=== PATIENT | female | born 1955 | race Caucasian/White ===

== ENCOUNTER 2022-06-16 20:17 | Inpatient (IN) | payer MEDICAID, OTHER ==
[~2022-06-16] VITALS: Ht 154.9 cm; Wt 63.7 kg
[~2022-06-16 20:17] MED LIST: CEPH500C2 MT; GLIP5TAB12 MT; LOSA50TA41 PO
[2022-06-16] MEDS ORDERED: MORPHINE SULFATE 4 MG/ML CPJ (NOT FOR IM USE) IV STA (21:19)
[2022-06-16 21:59] LABS: BASOPHILS % 0.4 % (0.0-2.0); CHLORIDE 97 mEq/L (98-107); HEMATOCRIT. 25.1 % (36.0-48.0); HEMOGLOBIN. 8.5 g/dL (12.0-16.0); LYMPHOCYTES % 10.7 % (20.0-50.0); MEAN CORPUSCULAR HEMOGLOBIN 26.6 pg (28.0-32.0); MEAN PLATELET VOLUME 8.3 fl (7.4-10.4); MONOCYTES % 8.1 % (2.0-8.0); NEUTROPHILS % 80.8 % (40.0-76.0); PLATELET 242 x1000/uL (130-400); RED BLOOD CELL COUNT 3.18 mill/uL (4.2-5.4); RED CELL DISTRIBUTION WIDTH 14.6 % (11.6-14.6)
[2022-06-16] MEDS ORDERED: ASPIRIN 81MG TABLET PO ONE (22:45)
[2022-06-16] MEDS ORDERED: CEFTRIAXONE 1 G PREMIX 50 ML IV ONE (23:45)
[2022-06-17] MEDS ORDERED: MORPHINE SULFATE 4 MG/ML CPJ (NOT FOR IM USE) IV NR (00:07)
[2022-06-17] MEDS ORDERED: ASPIRIN 81MG TABLET PO NR (00:08)
[2022-06-17 06:39] LABS: CLARITY URINE CLOUDY (CLEAR); COLOR URINE YELLOW (YELLOW); KETONES URINE NEGATIVE (NEGATIVE); LEUKOCYTE ESTERASE URINE 3+ (NEGATIVE); NITRITE URINE POSITIVE (NEGATIVE); OCCULT BLOOD URINE 2+ (NEGATIVE); PH URINE 6.5 (4.5-8.0); PROTEIN URINE 2+ (NEGATIVE)
[2022-06-17 16:00] VITALS: BP_SYST 134; BP_SYST 138; BP_DIAS 74
[2022-06-17] MEDS ORDERED: GLIP5TAB12 MT (16:36)
[2022-06-17] MEDS ORDERED: DEXTROSE 50% WATER 50ML SYRINGE IV PRN ×2 (17:30)
[2022-06-17] MEDS ORDERED: ACETAMINOPHEN 325MG TABLET PO PRN (17:30)
[2022-06-17] MEDS ORDERED: ONDANSETRON HCL 4MG/2ML INJ IV PRN (17:30)
[2022-06-17] MEDS ORDERED: MAGNESIUM/ALUMINUM HYDROXIDE/SIMETHICONE 30ML UDC PO PRN (17:30)
[2022-06-17] MEDS ORDERED: HYDROCODONE/ACETAMINOPHEN 5/325MG TABLET PO PRN (17:33)
[2022-06-17] MEDS ORDERED: ENOXAPARIN 30MG/0.3ML SYR SUBCUT SCH (18:00)
[2022-06-17] MEDS: BLOOD SUGAR DIAGNOSTIC STRIP TEST SCH ×2 (18:31→21:08)
[2022-06-17] MEDS: SODIUM CHLORIDE 0.9% 1,000 ML IV SCH (18:46)
[2022-06-17] MEDS: INSULIN LISPRO 100 UNITS/ML SUBCUT SCH ×2 (18:47→21:15)
[2022-06-17 20:00] VITALS: BP 114/63
[2022-06-17 21:14] LABS: TOTAL IRON BINDING CAPACITY 385 ug/dL (250-450)
[2022-06-18 01:00] VITALS: BP 143/65
[2022-06-18 04:00] VITALS: BP 139/64
[2022-06-18] MEDS: BLOOD SUGAR DIAGNOSTIC STRIP TEST SCH ×4 (06:25→21:24)
[2022-06-18 06:44] LABS: BASOPHILS % 0.4 % (0.0-2.0); HEMATOCRIT. 22.6 % (36.0-48.0); HEMOGLOBIN. 7.6 g/dL (12.0-16.0); LYMPHOCYTES % 12.8 % (20.0-50.0); MEAN CORPUSCULAR HEMOGLOBIN 26.7 pg (28.0-32.0); MEAN CORPUSCULAR VOLUME 79.4 fL (81.0-99.0); MEAN PLATELET VOLUME 8.5 fl (7.4-10.4); MONOCYTES % 9.8 % (2.0-8.0); PLATELET 216 x1000/uL (130-400); RED BLOOD CELL COUNT 2.85 mill/uL (4.2-5.4); RED CELL DISTRIBUTION WIDTH 14.8 % (11.6-14.6)
[2022-06-18 08:00] VITALS: BP 149/59
[2022-06-18 08:22] LABS: PHOSPHORUS 4.7 mg/dL (2.5-4.9); T4 FREE 1.39 ng/dL (0.76-1.46)
[2022-06-18] MEDS: INSULIN LISPRO 100 UNITS/ML SUBCUT SCH ×4 (08:32→21:33)
[2022-06-18 12:00] VITALS: BP 144/67
[2022-06-18] MEDS: SODIUM CHLORIDE 0.9% 1,000 ML IV SCH ×2 (13:55→21:24)
[2022-06-18 16:00] VITALS: BP 149/56
[2022-06-18] MEDS: FERROUS SULFATE 325MG TABLET PO SCH (18:04)
[2022-06-18] MEDS: PANTOPRAZOLE SODIUM 40 MG/VIAL IV SCH (18:04)
[2022-06-18] MEDS: CEFTRIAXONE 1,000 MG in DEXTROSE 5% WATER 50 ML IV SCH ×2 (18:05→18:37)
[2022-06-18 20:00] VITALS: BP 165/67
[2022-06-18] MEDS ORDERED: NALOXONE HCL 0.4MG/ML VIAL IV PRN (20:00)
[2022-06-18] MEDS ORDERED: EPOETIN ALFA 10000UNITS/ML VIAL SUBCUT SCH (21:00)
[2022-06-18] MEDS: CLONIDINE 0.1MG TABLET PO PRN (21:26)
[2022-06-18] MEDS: INSULIN GLARGINE 100 UNITS/ML SUBCUT SCH (21:33)
[2022-06-18 22:48] LABS: HEMATOCRIT 22.5 % (36.0-48.0); HEMOGLOBIN 7.4 g/dL (12.0-16.0)
[2022-06-19] VITALS (10 sets, daily range): BP systolic 132–175; BP diastolic 59–76
[2022-06-19] MEDS: SODIUM CHLORIDE 0.9% 1,000 ML IV SCH (06:15)
[2022-06-19] MEDS: BLOOD SUGAR DIAGNOSTIC STRIP TEST SCH ×4 (06:22→20:56)
[2022-06-19] MEDS: PANTOPRAZOLE SODIUM 40 MG/VIAL IV SCH ×2 (06:26→18:13)
[2022-06-19 07:53] LABS: CHLORIDE 103 mEq/L (98-107)
[2022-06-19 07:55] LABS: BASOPHILS % 0.4 % (0.0-2.0); EOSINOPHILS % 1.6 % (0.0-5.0); HEMOGLOBIN. 7.1 g/dL (12.0-16.0); LYMPHOCYTES % 13.5 % (20.0-50.0); MEAN CORPUSCULAR HEMOGLOBIN 27.1 pg (28.0-32.0); MEAN PLATELET VOLUME 8.4 fl (7.4-10.4); NEUTROPHILS % 76.5 % (40.0-76.0); PLATELET 265 x1000/uL (130-400); RED CELL DISTRIBUTION WIDTH 14.6 % (11.6-14.6)
[2022-06-19 08:09] LABS: PHOSPHORUS 3.8 mg/dL (2.5-4.9)
[2022-06-19 08:23] LABS: HEMATOCRIT. 20.8 % (36.0-48.0)
[2022-06-19 08:29] LABS: VITAMIN B12 SERUM >2000 pg/mL pg/mL (211-911)
[2022-06-19] MEDS: FERROUS SULFATE 325MG TABLET PO SCH ×3 (08:47→18:13)
[2022-06-19] MEDS: INSULIN LISPRO 100 UNITS/ML SUBCUT SCH ×4 (08:49→20:56)
[2022-06-19] MEDS: AMLODIPINE 2.5MG TABLET PO SCH ×2 (11:10→20:54)
[2022-06-19 11:30] LABS: CORTISOL 21.2 ucg/dL; FERRITIN 662 ng/mL (10-291)
[2022-06-19 11:47] LABS: HEMATOCRIT 21.3 % (36.0-48.0); HEMOGLOBIN 7.1 g/dL (12.0-16.0)
[2022-06-19] MEDS: CEFTRIAXONE 1,000 MG in DEXTROSE 5% WATER 50 ML IV SCH (18:33)
[2022-06-19] MEDS: CLONIDINE 0.1MG TABLET PO PRN (19:51)
[2022-06-19] MEDS: INSULIN GLARGINE 100 UNITS/ML SUBCUT SCH (21:00)
[2022-06-19 21:47] LABS: HEMATOCRIT 25.3 % (36.0-48.0); HEMOGLOBIN 8.2 g/dL (12.0-16.0)
[2022-06-19 22:23] LABS: PROTHROMBIN TIME 10.8 sec (9.6-11.0)
[2022-06-20] VITALS: BP 136/58
[2022-06-20 04:00] VITALS: BP 157/55
[2022-06-20] MEDS: SODIUM CHLORIDE 0.9% 1,000 ML IV SCH ×4 (04:33→23:31)
[2022-06-20 04:40] LABS: BASOPHILS % 0.5 % (0.0-2.0); EOSINOPHILS % 1.7 % (0.0-5.0); HEMATOCRIT. 24.5 % (36.0-48.0); HEMOGLOBIN. 8.1 g/dL (12.0-16.0); LYMPHOCYTES % 13.1 % (20.0-50.0); MEAN CORPUSCULAR HEMOGLOBIN 25.4 pg (28.0-32.0); MEAN CORPUSCULAR VOLUME 76.8 fL (81.0-99.0); MEAN PLATELET VOLUME 8.1 fl (7.4-10.4); MONOCYTES % 7.9 % (2.0-8.0); NEUTROPHILS % 76.8 % (40.0-76.0); PLATELET 277 x1000/uL (130-400); RED CELL DISTRIBUTION WIDTH 16.5 % (11.6-14.6)
[2022-06-20 05:25] LABS: PROTHROMBIN TIME 10.8 sec (9.6-11.0)
[2022-06-20] MEDS: BLOOD SUGAR DIAGNOSTIC STRIP TEST SCH ×4 (05:57→20:55)
[2022-06-20] MEDS: PANTOPRAZOLE SODIUM 40 MG/VIAL IV SCH ×2 (05:57→17:27)
[2022-06-20 06:45] LABS: PHOSPHORUS 3.4 mg/dL (2.5-4.9)
[2022-06-20] MEDS: FERROUS SULFATE 325MG TABLET PO SCH ×3 (07:50→17:26)
[2022-06-20] MEDS: INSULIN LISPRO 100 UNITS/ML SUBCUT SCH ×4 (07:50→21:02)
[2022-06-20 08:00] VITALS: BP 151/64
[2022-06-20] MEDS: AMLODIPINE 2.5MG TABLET PO SCH (08:28)
[2022-06-20 09:09] LABS: FOLATE HEMATOCRIT 21.4 % (34.0-46.6)
[2022-06-20 11:17] VITALS: BP 130/60
[2022-06-20] MEDS ORDERED: LIDOCAINE HCL 1% 10 MG/ML 10ML VIAL ONE (14:03)
[2022-06-20 14:08] LABS: FOLATE RBC 1266 ng/mL (>498)
[2022-06-20] MEDS ORDERED: MEPERIDINE HCL/PF 25MG/ML CPJ IV PRN (14:15)
[2022-06-20] MEDS ORDERED: HYDROMORPHONE HCL/PF 2MG/ML CPJ IV PRN (14:15)
[2022-06-20] MEDS ORDERED: ONDANSETRON HCL 4MG/2ML INJ IV PRN (14:15)
[2022-06-20] MEDS ORDERED: LABETALOL 5MG/ML SYR 20 MG/4 ML SYRINGE IV PRN (14:15)
[2022-06-20] MEDS: CLONIDINE 0.1MG TABLET PO PRN (14:47)
[2022-06-20 15:50] VITALS: BP 151/51
[2022-06-20] MEDS: CEFTRIAXONE 1,000 MG in DEXTROSE 5% WATER 50 ML IV SCH (17:27)
[2022-06-20 20:00] VITALS: BP 137/35
[2022-06-20] MEDS: AMLODIPINE 5MG TABLET PO SCH (21:00)
[2022-06-20] MEDS: INSULIN GLARGINE 100 UNITS/ML SUBCUT SCH (21:03)
[2022-06-21] VITALS: BP 156/44
[2022-06-21 04:00] VITALS: BP 148/47
[2022-06-21] MEDS: BLOOD SUGAR DIAGNOSTIC STRIP TEST SCH ×2 (05:15→12:11)
[2022-06-21] MEDS: PANTOPRAZOLE SODIUM 40 MG/VIAL IV SCH (05:15)
[2022-06-21 05:50] LABS: BASOPHILS % 0.6 % (0.0-2.0); HEMOGLOBIN. 8.3 g/dL (12.0-16.0); LYMPHOCYTES % 14.6 % (20.0-50.0); MEAN CORPUSCULAR HEMOGLOBIN 25.8 pg (28.0-32.0); MEAN CORPUSCULAR VOLUME 77.4 fL (81.0-99.0); MEAN PLATELET VOLUME 7.7 fl (7.4-10.4); MONOCYTES % 6.8 % (2.0-8.0); PLATELET 331 x1000/uL (130-400); RED BLOOD CELL COUNT 3.23 mill/uL (4.2-5.4); RED CELL DISTRIBUTION WIDTH 16.6 % (11.6-14.6)
[2022-06-21 06:08] LABS: CHLORIDE 109 mEq/L (98-107)
[2022-06-21 06:20] LABS: PHOSPHORUS 3.8 mg/dL (2.5-4.9)
[2022-06-21] MEDS: INSULIN LISPRO 100 UNITS/ML SUBCUT SCH ×2 (07:50→12:52)
[2022-06-21 08:00] VITALS: BP 127/67
[2022-06-21] MEDS: FERROUS SULFATE 325MG TABLET PO SCH ×2 (08:35→12:29)
[2022-06-21] MEDS: AMLODIPINE 5MG TABLET PO SCH (08:35)
[2022-06-21] MEDS: SODIUM CHLORIDE 0.9% 1,000 ML IV SCH (08:36)
[2022-06-21] MEDS ORDERED: MAGNESIUM 2 G PREMIX 50 ML IV NR (10:00)
[2022-06-21 12:00] VITALS: BP 147/47
[2022-06-21 15:43] VITALS: BP 130/60
[2022-06-21] MEDS ORDERED: AMLO5TAB88 PO (15:53)
[2022-06-21] MEDS ORDERED: FERR-63 PO (15:53)
[2022-06-21] MEDS ORDERED: FAMO40TA70 MT (15:53)
[2022-06-21] MEDS ORDERED: IRON SUCROSE COMPLEX 100 MG/5 ML ML IV SCH (16:00)
[2022-06-21 18:25] VITALS: BP 110/62
[2022-06-22] MEDS ORDERED: FAMOTIDINE 20MG TABLET PO SCH (09:00)
== END 2022-06-21 19:00 | disposition home or self-care (01) | DRG 463 ==
LOC: ER 20:17 → 6WST 06-17 02:42 → EDBEDREQSVC 06-17 02:57 → EDBEDREQTM 06-17 02:57 → EDBEDREQ 06-17 02:57 → ENRESERV 06-17 14:29
PROVIDERS: ADMIT Internal Medicine; ATTEND Internal Medicine
PROC: 30233N1 Transfusion of Nonautologous Red Blood Cells into Peripheral Vein, Percutaneous Approach (ICD-10-PCS; 2022-06-19)
PROC: 0DB78ZX Excision of Stomach, Pylorus, Via Natural or Artificial Opening Endoscopic, Diagnostic (ICD-10-PCS; principal; 2022-06-20)
DX: N13.6 Pyonephrosis (principal); N17.9 Acute kidney failure, unspecified; E44.1 Mild protein-calorie malnutrition; E87.1 Hypo-osmolality and hyponatremia; E11.22 Type 2 diabetes mellitus with diabetic chronic kidney disease; D50.9 Iron deficiency anemia, unspecified; D25.9 Leiomyoma of uterus, unspecified; E78.00 Pure hypercholesterolemia, unspecified; R74.01 Elevation of levels of liver transaminase levels; N18.30 Chronic kidney disease, stage 3 unspecified; N39.0 Urinary tract infection, site not specified; I12.9 Hypertensive chronic kidney disease with stage 1 through stage 4 chronic kidney disease, or unspecified chronic kidney disease; K29.70 Gastritis, unspecified, without bleeding; Z20.822 Contact with and (suspected) exposure to COVID-19; Z68.26 Body mass index [BMI] 26.0-26.9, adult; Z90.49 Acquired absence of other specified parts of digestive tract; Z83.3 Family history of diabetes mellitus; Z82.49 Family history of ischemic heart disease and other diseases of the circulatory system
CPT/HCPCS: 36415; 71045; 74176; 76705; 76770; 76856; 80048; 80053; 80061; 80076; 81003; 82270; 82533; 82607; 82728; 82747; 82962; 83036; 83540; 83550; 83605; 83735; 83880; 84100; 84439; 84443; 84484; 85014; 85018; 85025; 85044; 85049; 85384; 86850; 86900; 86920; 87077; 87186; 87426; 88305; 93005; 93306; 93970; 99285; C9113; J0696; J0885; J1650; J1815; J2270; J3475; J3490; J7030; J7060; P9016